=== PATIENT | female | born 1995 | race Two or more races ===

== ENCOUNTER 2024-07-12 05:24 | Day surgery (SDC) | payer OTHER ==
[2024-07-12] MEDS ORDERED: MEPERIDINE HCL/PF 50 MG/ML VIAL IV ONE (08:30)
[2024-07-12] MEDS ORDERED: MIDAZOLAM HCL/PF 5 MG/ML VIAL IV ONE (08:30)
[2024-07-12] MEDS ORDERED: DIPHENHYDRAMINE HCL 50 MG/ML VIAL 1ML IV ONE (08:30)
== END 2024-07-12 11:10 | disposition home or self-care (01) ==
LOC: AMB-ENDOS 05:24
PROVIDERS: ATTEND Surgery
DX: K29.00 Acute gastritis without bleeding (principal); R10.13 Epigastric pain; E66.01 Morbid (severe) obesity due to excess calories; K44.9 Diaphragmatic hernia without obstruction or gangrene